=== PATIENT | male | born 1955 | race African-American/Black ===

== ENCOUNTER 2018-07-11 21:44 | Inpatient (IN) ==
[2018-07-11] MEDS ORDERED: NITROGLYCERIN TOP ONE (21:56)
[2018-07-11 22:17] LABS: ALLEN TEST YES; BE 1.1 mmoll (-3.0-3.0); BLOOD TYPE ARTERIAL; HCO3-(ACT) 25.6 mmoll (20.0-26.0); METHB 1.4 % (0.0-1.5); O2(CT) 16.1 mL/dL (15.0-23.0); O2HB 91.2 % (95.0-99.0); PCO2(98.6) 45 mmHg (35-45); PO2(98.6) 68 mmHg (60-100); SAMPLE BLOOD; SAO2 94.5 % (95.0-100.0); THB 12.5 g/dL (11.5-17.4); pH(98.6) 7.38 (7.35-7.45)
[2018-07-11 22:18] LABS: MODALITY VENTIMASK
[2018-07-11] MEDS ORDERED: DUONEB (A & A) INH ONE (22:40)
[2018-07-11] MEDS ORDERED: NITROGLYCERIN 50 MG/D5W 50 MG/250 ML IV.SOLN IV SCH (22:45)
[2018-07-11 22:52] LABS: AGAP 13; ALB/GLOB RATIO 0.8; ALBUMIN 3.1 g/dL (3.5-5.0); ALKALINE PHOSPHATASE 101 U/L (32-122); BUN 15 mg/dL (8-22); CALCIUM 8.7 mg/dL (8.8-10.2); CHLORIDE 97 mmol/L (98-107); COSMO 277; CREATININE 1.1 mg/dL (0.7-1.2); ESTIMATED GFR > 60; GLUCOSE 246 mg/dL (70-104); GOT 18 U/L (10-34); GPT 16 U/L (10-44); SODIUM 134 mmol/L (136-145); TCO2 24 mmol/L (25-35); TOTAL BILIRUBIN 0.48 mg/dL (0.20-1.00); TOTAL PROTEIN 6.9 g/dL (6.3-8.3)
[2018-07-11 22:59] LABS: BASO# 0.02 X1000 (0.0-0.2); BASO% 0.1 % (0.0-0.8); EOS% 0.4 % (0.0-10.0); HEMATOCRIT 36.5 % (42.0-52.0); IMM GRAN# 0.21 X1000 (0.0-0.04); IMM GRAN% 0.9 % (0.0-0.5); LYMPH# 1.24 X1000 (1.2-3.4); LYMPH% 5.1 % (20.5-51.1); MCH 31.8 PG (27-31); MCHC 32.9 g/dL (33-37); MCV 96.8 FL (81-99); MONO# 1.28 X1000 (0.11-0.59); MONO% 5.2 % (1.7-9.3); MPV 11.1 FL (7.4-10.4); NEUT# 21.69 X1000 (1.4-6.5); NEUT% 88.3 % (42.2-75.2); PLT 568 X1000 (130-400); RBC 3.77 XMIL (4.7-6.1); RDW 11.8 % (11.5-14.5); WBC 24.54 X1000 (4.8-10.8)
[2018-07-11 23:08] LABS: LYMPHS 8 % (21-51); MONO 6 % (1-9); SEGS 86 % (42-75)
[2018-07-11] MEDS ORDERED: LASIX IV ONE (23:36)
[2018-07-12] MEDS ORDERED: SODIUM CHLORIDE 0.9% INJ SCH (01:15)
[2018-07-12] MEDS ORDERED: DUONEB (A & A) INH PRN (01:27)
[2018-07-12 02:03] LABS: INR 1.11; PROTIME 15.2 Seconds (11.0-16.0)
[2018-07-12 02:04] LABS: PTT 32.6 Seconds (22.3-41.8)
[2018-07-12] MEDS: PROTONIX IV SCH (02:10)
[2018-07-12] MEDS: APRESOLINE PO SCH ×3 (02:20→17:33)
[2018-07-12] MEDS: DUONEB (A & A) INH SCH ×5 (03:00→23:05)
[2018-07-12] MEDS ORDERED: TYLENOL PO PRN (03:54)
[2018-07-12 05:42] LABS: EOS# 0.05 X1000 (0.0-0.7); EOS% 0.3 % (0.0-10.0); HEMATOCRIT 32.9 % (42.0-52.0); HEMOGLOBIN 10.8 g/dL (14.0-18.0); IMM GRAN# 0.07 X1000 (0.0-0.04); IMM GRAN% 0.4 % (0.0-0.5); LYMPH# 1.71 X1000 (1.2-3.4); LYMPH% 9.5 % (20.5-51.1); MCH 31.8 PG (27-31); MCHC 32.8 g/dL (33-37); MCV 96.8 FL (81-99); MONO# 1.21 X1000 (0.11-0.59); MONO% 6.7 % (1.7-9.3); MPV 10.4 FL (7.4-10.4); NEUT# 14.89 X1000 (1.4-6.5); NEUT% 83.1 % (42.2-75.2); PLT 465 X1000 (130-400); RDW 11.8 % (11.5-14.5); WBC 17.93 X1000 (4.8-10.8)
[2018-07-12 06:04] LABS: AGAP 10; BUN 19 mg/dL (8-22); CALCIUM 8.1 mg/dL (8.8-10.2); CHLORIDE 99 mmol/L (98-107); CK PROFILE 111 U/L (24-204); COSMO 282; CREATININE 1.3 mg/dL (0.7-1.2); ESTIMATED GFR > 60; GLUCOSE 212 mg/dL (70-104); MAGNESIUM 2.1 mg/dL (1.5-2.7); POTASSIUM 4.6 mmol/L (3.5-5.1); SODIUM 137 mmol/L (136-145); TCO2 28 mmol/L (25-35)
--- NOTE | 2018-07-12 06:25 | HISTORY AND PHYSICAL ---
CHIEF COMPLAINT: Shortness of breath. HISTORY OF PRESENT ILLNESS: Mr. Love is a 63-year-old male, who was just recently discharged from our facility on July 07. During this admission, he was treated for right-sided pneumonia, uncontrolled hypertension, and acute kidney injury, and diabetes mellitus. He, during his hospital course, did receive antibiotics of cefepime and Zyvox. He did have consultations with Pulmonology and Infectious Disease with Dr. Beyer, and did get discharged with antibiotic coverage of doxycycline and Levaquin. The patient states that prior to being discharged, he did notice that he began having lower extremity swelling. This has progressively gotten worse since he was discharged home. He did have approximately 1-2+ pitting edema in bilateral lower extremities from approximately just below the knee bilaterally down. He has reported that he was sent home with oxygen and has been wearing this. He reports that his cough has not improved. It has actually worsened. It had been a productive cough with brownish- to-white thick-colored sputum. He also reports that he was experiencing dyspnea upon exertion. Though over the last night or two, that he has had orthopnea and last night he had some paroxysmal nocturnal dyspnea. He also reports that his abdomen has felt more swollen. He denies any headache, dizziness, or chest pain. He denies any fever, body aches, or chills. He denies any nausea, vomiting, diarrhea, or constipation. He reports his last bowel movement was earlier today. He denies any hematochezia or melena. He denies any dysuria, urinary frequency, or any decrease in his urine output. Other than the swelling in his legs, he denies any pain, numbness, or tingling in his extremities. He is not reporting any pain anywhere at this time. Upon evaluation in the ER, the patient did present in the respiratory distress. He was reportedly in the 80s on his home oxygen. Upon EMS arrival, he did have CPAP in the ambulance en route to the ER. Once arriving to the ER, he was able to be placed on a Venti mask at 50% and is maintaining adequate oxygen saturations on this at this time with oxygen saturations in the 95% to 96% range. Though he is still dyspneic breathing around 28 times per minute, the patient states he feels much better since arriving to the ER and receiving oxygen and medications. In the ER, the physician did go ahead and treat the patient with DuoNeb treatment, 1 inch nitro paste to the center chest wall, and Lasix 80 mg IV. Chest x-ray did reveal that the patient does have what appears to be diffuse right-sided pneumonia. There does appear to be some development of pneumonia on the left lung base as well. Though there does appear to be some component of pulmonary vascular congestion. EKG did show a sinus tachycardia at a rate of 109. Laboratory results revealed that he had leukocytosis with a white blood cell count of 24,540. His proBNP was 5555. So, cardiac enzymes were negative. He was slightly hyperglycemic with a glucose of 249. Other than this, his chemistry was pretty unremarkable. Arterial blood gases were good as well. PO2 was 68, pCO2 was 45, pH was 7.38 with an O2 saturation of 94.5 on a Venti mask at 50% FIO2. At this point, the patient will be admitted for further treatment and evaluation of his pneumonia, acute respiratory failure, and possible congestive heart failure. REVIEW OF SYSTEMS: A 14-point review of systems was conducted with the patient and all were negative except for pertinent positives as mentioned above in HPI. PAST MEDICAL HISTORY: 1. Hypertension. 2. Hyperlipidemia. 3. Diabetes mellitus type 2. 4. History of acute kidney injury on his previous admission, though, this does appear to have now resolved. 5. Iron deficiency anemia. PAST SURGICAL HISTORY: The patient denies any previous surgeries. FAMILY HISTORY: Positive for his mother having a history of stroke, diabetes, and hypertension. His father also had a history of stroke, diabetes, and hypertension as well. SOCIAL HISTORY: The patient is a former smoker. He did quit smoking in 1983, although, he did smoke for a period of approximately 15 years at 1 pack per day. There is no other known alcohol or illicit drug use. He does live at home. He reports his daughter does live with him. ALLERGIES: The patient has no known allergies. HOME MEDICATIONS: 1. Coreg 25 mg p.o. q.12 hours. 2. Doxycycline 100 mg p.o. b.i.d. 3. Gabapentin 300 mg p.o. at hour of sleep. 4. Apresoline 25 mg p.o. q.8 hours. 5. Iron 65 mg p.o. daily. 6. Levaquin 500 mg p.o. daily. 7. Lisinopril 5 mg p.o. daily. 8. Lovastatin 20 mg p.o. with supper. 9. Glucophage 1000 mg p.o. b.i.d. 10.Medrol Dosepak 4 mg p.o. as directed. 11.Tresiba subcutaneous q. day as directed. DIAGNOSTIC DATA: Laboratory results: White blood cell count is 24,540, hemoglobin 12, hematocrit 36.5, platelet count is 568. PT 15.2, INR 1.11, PTT is 32.6. Sodium is 134, potassium is 5, chloride is 97, serum bicarb is 24, BUN 15, creatinine 1.1, with a GFR greater than 60, glucose 246, calcium 8.7. Magnesium 2.1. Liver function tests are within normal limits. CK 146. Troponin is 0.01. ProBNP is 5555. Plasma lactate is 1.2. Arterial blood gases were obtained on a Venti mask at 50% FIO2: pH of 7.38, pCO2 was 45, pO2 68, HCO3 is 25.6, base excess of 1.1, and O2 saturation of 94.5. EKG showed sinus tachycardia at a rate of 109. Chest x-ray does show diffuse right-sided pneumonia. There is also what appears to be some pneumonia in the left lower lung field as well. There also does appear to be some pulmonary vascular congestion as well. Though we are awaiting official Radiology over read. PHYSICAL EXAMINATION: VITAL SIGNS: Temperature 98.4, heart rate 108, respirations 28, blood pressure is 177/110, oxygen saturation is 95% on a Venti mask on 50% FIO2. GENERAL: Mr. Love is a pleasant 63-year-old male. He was resting in the ER stretcher. Though he does still appear to be slightly dyspneic and tachypneic upon examination. He does not appear to be in distress. He is able to talk in complete sentences. He states that he does feel better at this time. HEENT: Head is atraumatic, normocephalic. Pupils are equal, round, and reactive to light or 3 mm bilaterally and brisk. Subconjunctiva were slightly pale. Oral mucosa is moist. Oropharynx is clear except for the patient does have some candidiasis noted on his buccal mucosa. NECK: Supple. Trachea midline. No carotid bruits noted upon auscultation bilaterally. There was no JVD noted or hepatojugular reflux. CARDIOVASCULAR: The patient has normal S1, S2. No murmurs, gallops, or rubs appreciated with a slightly tachycardic rate that is regular. PULMONARY: Patient has symmetrical chest expansion bilaterally. Lung calvo and bilateral full calvo were coarse with rhonchi and crackles noted. ABDOMEN: Soft, but does appear to be slightly distended, though he was nontender upon palpation. Bowel sounds were present in all four quadrants were slightly hypoactive. EXTREMITIES: No cyanosis or clubbing noted. The patient does have 1-2+ pitting edema noted on his bilateral lower extremities from approximately below the knee down. He is able to move all extremities. Pulse, motor, and sensory is intact in all extremities. Radial pulses and pedal pulses are 2+ bilaterally. INTEGUMENTARY: Patient's skin color is normal for his race. It is dry and intact. NEUROLOGICAL: The patient is alert and oriented to person, place, and time and situation. There does not appear to be any focal neurological deficits noted. ASSESSMENT AND PLAN: 1. Bilateral pneumonia. This does appear to be worse on the right than the left. There is also what appears to be some possible pulmonary vascular congestion as well. For treatment of this, we have placed the patient on a Venti mask at this time at 50% FIO2. He is tolerating this well and maintaining adequate oxygen saturations. So we will continue to monitor his respiratory status closely and if his respiratory status worsens, we will go ahead and place him with BiPAP. His arterial blood gases look okay at this time; though, we will repeat them in the morning. We will obtain blood culture and sputum culture. We will place him with antibiotic coverage of cefepime and Zyvox. We will continue with aggressive pulmonary toilet with frequent turn cough and deep breathing, incentive spirometry, scheduled DuoNeb treatments, and Mucinex. We have placed a consult with Dr. Beyer with Infectious Disease and Dr. Baeza with Pulmonary. We will wait their evaluation and further recommendations for management. 2. Acute hypoxic respiratory failure. We will continue with treatment as mentioned above in #1. 3. Leukocytosis. This is likely secondary to the patient's pneumonia. We will continue treatment as mentioned above in #1. 4. Possible congestive heart failure. The patient has known reported history of having congestive heart failure, though, he has been having bilateral lower extremity edema, abdominal swelling. He had been reporting exertional dyspnea, orthopnea, and paroxysmal nocturnal dyspnea. Chest x- ray did appear to have some pulmonary vascular congestion as well. His proBNP is elevated. We will obtain a series of cardiac enzymes. Will repeat an EKG in the morning. We will do strict intake and output and daily weights. We are also going to obtain an echocardiogram. He did receive 80 mg of Lasix IV in the ER. We are going to monitor his response to this, and we will continue to follow. 5. Hypertension. Will continue his already prescribed home medications of hydralazine, Coreg, and lisinopril. 6. Hyperlipidemia. Will continue his lovastatin. 7. Diabetes mellitus type 2. We are going to place him on a sliding-scale lispro insulin for better control of his fingerstick blood sugar at this time. He was taking a Medrol Dosepak just after being discharged. This may be contributing to some of his hyperglycemia. At this time, the patient's hemoglobin A1c was 6.8 on July 07 during his most recent admission. 8. Oral candidiasis. We will place the patient with nystatin oral solution. 9. Deep venous thrombosis prophylaxis will be provided with Lovenox 40 mg subcutaneous q.24 hours. The patient will be placed in the intensive care unit for close monitoring. He will have vital signs per intensive care unit protocol. He will be on continuous cardiac, telemetry, and pulse oximetry. He will be on a diabetic and heart healthy diet. We will also repeat CBC, BMP, magnesium, and arterial blood gas in the morning as well as cardiac enzymes. GI prophylaxis will be provided with Protonix 40 mg IV q.24 hours. Further orders and recommendations pending hospital course, diagnostic studies, and physician evaluation. CRITICAL CARE TIME FOR THIS PATIENT: Approximately 60 minutes. Dictated by SHASHANK Forrester for Pacheco Alvares MD cc: Pacheco Alvares MD
[2018-07-12] MEDS: HUMALOG SUBQ SCH ×4 (07:00→21:29)
--- NOTE | 2018-07-12 07:05 | EKG Report ---
Test Performed on : 07/12/2018 06:51:01 AM Test Reason : PNA,Acute Resp. Failure,Poss. CHF Blood Pressure : / mmHG Vent. Rate : 101 BPM Atrial Rate : 101 BPM P-R Int : 130 ms QRS Dur : 092 ms QT Int : 360 ms P-R-T Axes : 059 031 090 degrees QTc Int : 466 ms Sinus tachycardia. with premature atrial complexes. Left atrial enlargement Nonspecific T wave abnormality Abnormal ECG When compared with ECG of 11-JUL-2018 21:47, (Unconfirmed) premature atrial complexes. are now present Confirmed by Mayur ASCENCIO, Richard Sosa ([id number]) on 07/12/2018 5:27:27 PM
--- NOTE | 2018-07-12 07:24 | EKG Report ---
Test Performed on : 07/11/2018 9:47:58 PM Test Reason : sob Blood Pressure : / mmHG Vent. Rate : 109 BPM Atrial Rate : 109 BPM P-R Int : 132 ms QRS Dur : 090 ms QT Int : 342 ms P-R-T Axes : 052 027 074 degrees QTc Int : 460 ms Sinus tachycardia. Possible Left atrial enlargement Nonspecific T wave abnormality Abnormal ECG No previous ECGs available Unconfirmed Result
--- NOTE | 2018-07-12 07:30 | Diag Imaging Result Doc PS360 ---
EXAM: CHEST-PORTABLE 07/11/2018 HISTORY: SOB TECHNIQUE: AP portable at 2205 COMMENT: There is dense alveolar opacity throughout the right lung and in the parahilar region of the left lung. The latter has worsened considerably since 07/06/2018. IMPRESSION: Worsening pulmonary edema versus pneumonia. Electronically signed by Fabio Hair 07/12/2018 7:28 AM
[2018-07-12 07:35] LABS: ALLEN TEST YES; BLOOD TYPE ARTERIAL; HCO3-(ACT) 29.6 mmoll (20.0-26.0); METHB 1.7 % (0.0-1.5); O2(CT) 14.5 mL/dL (15.0-23.0); O2HB 94.2 % (95.0-99.0); PCO2(98.6) 38 mmHg (35-45); PO2(98.6) 72 mmHg (60-100); SAMPLE BLOOD; SAO2 97.4 % (95.0-100.0); THB 10.9 g/dL (11.5-17.4)
[2018-07-12 07:38] LABS: MODALITY CANNULA
[2018-07-12] MEDS ORDERED: ZYVOX 600 MG/D5W 600 MG/300 ML IVPB IV SCH (07:45)
[2018-07-12] MEDS ORDERED: MAXIPIME 1 GM in NS 50 ML IV SCH (07:45)
[2018-07-12] MEDS ORDERED: IRON CARBONYL 65 MG PO SCH (09:00)
[2018-07-12] MEDS: COREG PO SCH ×2 (09:14→21:29)
[2018-07-12] MEDS: ICAR-C PO SCH (09:15)
[2018-07-12] MEDS: LOVENOX SUBQ SCH (09:15)
[2018-07-12] MEDS: MUCINEX PO SCH ×2 (09:16→21:29)
[2018-07-12] MEDS: MYCOSTATIN SUSP PO SCH ×4 (09:17→21:29)
[2018-07-12] MEDS: PRINIVIL PO SCH (09:17)
--- NOTE | 2018-07-12 12:18 | CONSULTATION ---
DATE OF CONSULTATION: 07/12/2018 REQUESTING PROVIDER: SHASHANK Forrester. REASON FOR CONSULTATION: Pneumonia, acute respiratory failure and possible congestive heart failure. HISTORY OF PRESENT ILLNESS: This is a 63-year-old male with a past medical history of hypertension, hyperlipidemia, diabetes mellitus type 2 and possible seasonal pollen allergy. His last admission was between 06/30/2018 to 07/07/2018 for right-sided pneumonia, uncontrolled hypertension, an acute kidney injury and diabetes. He came in last night with worsening shortness of breath and bilateral lower extremity edema. In the ER, a CXR revealed worsening pulmonary edema versus pneumonia throughout the right lung and the perihilar region of the left lung since 07/06/2018. Lab revealed a WBC of 24.5 and proBNP 5555. Blood gas was unremarkable. Patient has been admitted for pneumonia, acute respiratory failure, and possible congestive heart failure. At the time of my exam, patient is still staying in the ER. The patient reports on 07/07/2018 he was discharged home with oxygen at 2 L and he has been wearing it, but it is not helping enough for SOB. He is still coughing with brownish to white thick sputum. The patient also reports that his abdomen distended and tight yesterday. He is feeling better now after excessive urination this morning (patient has received 80mg IV Lasix since arrival). He denies fever, chills, chest pain, nausea, vomiting, constipation, diarrhea. PAST MEDICAL HISTORY: 1. Hypertension, poorly controlled 2. Hyperlipidemia. 3. Diabetes mellitus type 2. 4. Possible seasonal pollen allergy 5. Acute kidney injury on previous admission. PAST SURGICAL HISTORY: None. SOCIAL HISTORY: Patient lives at home with his daughter. He has a remote history of tobacco use and quit in 1983. He denies any history of illicit drug use, but occasionally drinks beer. FAMILY HISTORY: The patient's mother has a history of stroke, diabetes and hypertension. The patient's father also has stroke, diabetes, hypertension. The patient's elder sister has congestive heart failure. Elder brother has heart attack. ALLERGIES: No known drug allergies. REVIEW OF SYSTEMS: A 10 point review of systems was conducted and the pertinent is listed within the HPI, otherwise noncontributory. PHYSICAL EXAMINATION: Vital Signs: Temperature 98.7 degrees, blood pressure 185/97, pulse 86, respiratory rate 27, oxygen saturation 94% on Ventimask at 50% FiO2. General: Obese, no acute distress. HEENT: Atraumatic. Neck: Trachea midline. Respiratory: Diminished breathing sounds with prolonged expiratory phase and bilateral crackles to auscultation. Cardiovascular: Regular rate and rhythm. Gastrointestinal: Soft, nontender. Mildly distended. Normoactive bowel sounds in all 4 quadrants. Extremities: Bilateral lower extremity edema 2+. There is no cyanosis, no clubbing noted. Neurologic: Alert, oriented x3 with intact memory and sensation. LAB DATA: White blood cell 17.93, hemoglobin 10.8, hematocrit 32.9, platelet 465. Sodium 137, potassium 5.0, chloride 97, carbon dioxide 24. BUN 19, creatinine 1.3, glucose 212. ABG reveals a pH of 7.50, pCO2 of 38, PO2 72, HC03 29.6, base excess 6.0, and oxyhemoglobin 94.2. ASSESSMENT: This is a 63-year-old male with medical history of uncontrolled hypertension, hyperlipidemia, diabetes mellitus, possible seasonal pollen allergy and acute kidney injury. He has been admitted to the CICU for bilateral pneumonia, acute hypoxic respiratory failure and possible congestive heart failure: 1. Pneumonia. 2. Acute hypoxemic respiratory failure. 3. Possible congestive heart failure. PLAN: 1. Continue supplemental oxygen as needed 2. BiPAP at bedtime and as needed 3. Continue antibiotic and bronchodilators as prescribed. 4. Routine ABG and chest x-ray. 5. Dr. Beyer, the Infectious Disease specialist, is consulted. 6. Continue GI and DVT prophylaxis. Thank you for the courtesy of this consult. Dictated by SHASHANK Johnson for Francoise Modi MD cc: SHASHANK Johnson MD [facility]
--- NOTE | 2018-07-12 13:54 | ECHO REPORT ---
ORDER DATE: 07/12/2018 PROCEDURE: Echocardiogram. INDICATION: Edema, dyspnea, possible CHF. FINDINGS: 1. Right atrium is mildly enlarged at 4.3 cm. 2. There is mild tricuspid regurgitation. RV systolic pressure of 62 suggesting pulmonary hypertension. 3. Normal RV size and systolic function. 4. Mild pulmonic insufficiency. 5. Severe left atrial enlargement with a volume index of 59. 6. No mitral valve prolapse. Mild to moderate mitral regurgitation. This is a somewhat eccentric jet. 7. Upper limits of normal LV size with an end-diastolic dimension of 5.7. Moderate left ventricular hypertrophy with a posterior and interventricular septal wall thickness 1.6 and 1.5 cm respectively. Normal LV systolic function. Estimated EF of 55% to 60% percent range. 8. Aortic valve opens well. It is trileaflet. No evidence of stenosis or insufficiency. 9. Aorta appears normal in visualized segments. 10. There is a scant predominantly posterior pericardial effusion with no evidence of tamponade type physiology. cc: Nehemiah Valencia MD
[2018-07-12 15:05] LABS: URINE SOURCE CLEAN CATCH
[2018-07-12 15:10] LABS: BILIRUBIN URINE NEGATIVE (NEGATIVE); BLOOD URINE NEGATIVE (NEGATIVE); COLOR YELLOW; GLUCOSE URINE NEGATIVE (NEGATIVE); KETONE URINE NEGATIVE (NEGATIVE); LEUKOCYTES URINE NEGATIVE (NEGATIVE); NITRITE URINE NEGATIVE (NEGATIVE); PH URINE 5.5; PROTEIN URINE 70 mg/dL (NEGATIVE); TURBIDITY URINE CLEAR (CLEAR); UR EPITHELIAL CELLS <10 /HPF (<10); URINE BACTERIA NEGATIVE /HPF; URINE RBC <10 /HPF (<10); URINE WBC <10 /HPF (<10); UROBILINOGEN URINE NORMAL (NORMAL)
--- NOTE | 2018-07-12 15:36 | INFECTIOUS DISEASE PROGRESS NO ---
DATE: 07/12/2018 PRESENT ILLNESS: Mr. Love was recently discharged after being treated for bilateral pulmonary infiltrates with pneumonia versus pulmonary venous congestion. He also had an oral candidiasis. On this admission he returned due to acute respiratory failure with worsening pulmonary edema versus pneumonia noted on the chest x-ray. There is also a leukocytosis. MEDICATIONS: He was discharged on Levaquin 500 mg p.o. daily and doxycycline 100 mg p.o. every 12 hours, which he was taking at home. He was also on Nystatin swish and swallow 4 times a day. Since admission yesterday he has been receiving Zyvox 600 mg IV every 12 hours and cefepime 1 g IV every 12 hours along with Nystatin swish and swallow 4 times a day. PHYSICAL EXAMINATION: Vital Signs: He has been afebrile since admission this time. Last documented temp was 98.5. Pulse rate 84, respiratory rate 15, blood pressure 144/64, and O2 saturation 94% on 50% Ventimask. General: This is a chronically ill-appearing elderly gentleman. He is lying on a stretcher, currently in no acute distress. However, he does get shortness of breath after speaking a few words. HEENT: Atraumatic, normocephalic. Oral mucous membranes are pink and moist. Conjunctivae are pale. Neck: Supple. Trachea is midline. Cardiovascular: Heart rate and rhythm are regular. Normal sinus rhythm on the monitor. Radial and pedal pulses are +2 bilaterally. He has bilateral pretibial edema noted, 2+ on the right and 1+ on the left. Respiratory: Lung sounds are generally clear to auscultation, diminished in the bases. He has a productive cough with "milky brown" sputum. Respiratory rate does elevate at times with some noted tachypnea in the 30s and moderate dyspnea with verbalization. Abdomen: Soft, round, and nontender. Bowel sounds are active. Neurological: He is awake, alert, and oriented with strong extremities; limited activity due to shortness of breath. No tremors noted. LABORATORY AND X-RAY: On admission his white count was 24.54. Today his white count is 17.93, hemoglobin 10.8, and platelet count 465,000. ABGs this morning on a 50% Ventimask show a pH of 7.5, pCO2 of 38, pO2 of 72, and HCO3 29.6. Creatinine is 1.3. Estimated GFR is greater than 60. Creatine kinase is 111. On admission his AST was 18, ALT 16, and alkaline phosphatase 101 with a proBNP of 5,555. Blood and sputum cultures are pending. EKG showed sinus tach with premature atrial complexes. Chest x-ray yesterday showed worsening pulmonary edema versus pneumonia. ASSESSMENT AND PLAN: Mr. Love has pneumonia versus worsening pulmonary edema with acute respiratory failure causing readmission to the hospital after a recent discharge. He has been started on Zyvox and cefepime which we agree with, however, we will change the Zyvox to oral and increase the cefepime to 2 g IV every 8 hours to cover for the possibility of pseudomonas. We will go ahead and order a procalcitonin level and also obtain a urinalysis with urine culture to rule out other origins of his leukocytosis. We will await the results of his blood cultures and sputum culture and continue to watch his renal function carefully since there was an acute kidney injury on his last admission. We also agree with continuing the Nystatin swish and swallow although he states that there is no pain or problems in his mouth at this point. He did have an oral candidiasis previously, so it is appropriate to continue Nystatin until after his antibiotics have been completed and then a few days later. The previous plans have been discussed with and recommended by Dr. Beyer. COMORBIDITIES for Mr. Love include that he is elderly with diabetes mellitus. Dictated by SHASHANK Jordan for Jose Armando Beyer MD This chart was documented by, SHASHANK Jordan and accurately reflects the services performed, treatment plan and medical decisions as attested by the providers signature Jose Armando Beyer MD. cc: MD ANTONIO Bai
[2018-07-12] MEDS: MEVACOR PO SCH (17:33)
[2018-07-12] MEDS ORDERED: BLISTEX MEDICATED BERRY LIP BALM TOP PRN (17:36)
[2018-07-12] MEDS: ZYVOX PO SCH (21:29)
[2018-07-12] MEDS: MAXIPIME 2 GM in NS 100 ML IV SCH (21:29)
[2018-07-12] MEDS: NEURONTIN PO SCH (21:29)
[2018-07-13] MEDS: APRESOLINE PO SCH ×3 (01:48→16:11)
[2018-07-13] MEDS: PROTONIX IV SCH (01:48)
[2018-07-13] MEDS: DUONEB (A & A) INH SCH ×6 (03:05→22:58)
[2018-07-13] MEDS: MAXIPIME 2 GM in NS 100 ML IV SCH ×3 (04:23→19:50)
[2018-07-13 05:43] LABS: HEMATOCRIT 29.5 % (42.0-52.0); HEMOGLOBIN 9.5 g/dL (14.0-18.0); MCH 31.9 PG (27-31); MCHC 32.2 g/dL (33-37); MPV 10.9 FL (7.4-10.4); RBC 2.98 XMIL (4.7-6.1); RDW 12.2 % (11.5-14.5); WBC 14.98 X1000 (4.8-10.8)
[2018-07-13 05:50] LABS: AGAP 8; ALB/GLOB RATIO 0.5; ALBUMIN 2.2 g/dL (3.5-5.0); ALKALINE PHOSPHATASE 72 U/L (32-122); BUN 18 mg/dL (8-22); CALCIUM 8.4 mg/dL (8.8-10.2); CHLORIDE 100 mmol/L (98-107); COSMO 273; CREATININE 1.4 mg/dL (0.7-1.2); ESTIMATED GFR > 60; GLUCOSE 116 mg/dL (70-104); GOT 21 U/L (10-34); GPT 14 U/L (10-44); SODIUM 135 mmol/L (136-145); TCO2 27 mmol/L (25-35); TOTAL PROTEIN 6.8 g/dL (6.3-8.3)
[2018-07-13] MEDS: LOVENOX SUBQ SCH (05:51)
[2018-07-13 05:59] LABS: ALLEN TEST YES; BE 3.6 mmoll (-3.0-3.0); BLOOD TYPE ARTERIAL; HCO3-(ACT) 27.7 mmoll (20.0-26.0); METHB 1.2 % (0.0-1.5); O2(CT) 13.4 mL/dL (15.0-23.0); O2HB 94.5 % (95.0-99.0); PCO2(98.6) 39 mmHg (35-45); PO2(98.6) 72 mmHg (60-100); SAMPLE BLOOD; SAO2 97.1 % (95.0-100.0); pH(98.6) 7.46 (7.35-7.45)
[2018-07-13 06:05] LABS: MODALITY VENTIMASK
[2018-07-13] MEDS: HUMALOG SUBQ SCH ×4 (06:09→20:01)
[2018-07-13] MEDS: MYCOSTATIN SUSP PO SCH ×5 (08:09→20:00)
[2018-07-13] MEDS: ZYVOX PO SCH ×3 (08:09→20:01)
[2018-07-13] MEDS: COREG PO SCH ×3 (08:09→20:01)
[2018-07-13] MEDS: PRINIVIL PO SCH (08:09)
[2018-07-13] MEDS: MUCINEX PO SCH ×3 (08:09→20:01)
[2018-07-13] MEDS: ICAR-C PO SCH (08:09)
--- NOTE | 2018-07-13 08:38 | INFECTIOUS DISEASE PROGRESS NO ---
DATE: 07/13/2018 PRESENT ILLNESS: The patient is readmitted to the hospital with worsening dyspnea on x-ray. The patient has pulmonary venous congestion and/or pneumonia. MEDICATIONS: Yesterday the patient was started on cefepime and Zyvox. PHYSICAL EXAMINATION: Vital Signs: Temperature is 98 degrees, pulse 94, respirations 16, blood pressure 160/78. General: This is an ill-appearing, elderly male. He tells me that his breathing is much better than what it was yesterday. Head/eyes/ears/nose/throat: He can hear my spoken words and see near objects. I do not see any white patches in his mouth. Neck: No meningismus. Thorax: No increased AP diameter of the chest. Lungs: Bilateral rhonchi. Cardiovascular: Heart rate is regular. Abdomen: Soft and nontender. Extremities: Patient has bilateral leg edema, but no erythema. Neurologic: The patient is alert. He can move his extremities. There is no tremor. LAB AND X-RAY: Chest x-ray shows pulmonary edema versus pneumonia. Sputum and urine cultures are pending. Blood cultures are negative. Urinalysis showed no white cells or bacteria. CBC shows a white count of 14,980, hemoglobin 9.5, and platelet count 40,000. Blood gases show a pH of 7.46, a PO2 of 72, a pCO2 of 39. Creatinine is 1.4. GFR is greater than 60. Liver function studies are normal. ASSESSMENT AND PLAN: Patient has pneumonia and/or pulmonary edema. From my perspective, I plan to continue the patient's current antibiotics. The patient has a procalcitonin level ordered. COMORBIDITIES: The patient's comorbidities include patient is elderly and he has diabetes mellitus. cc: Jose Armando Beyer MD
--- NOTE | 2018-07-13 11:47 | Diag Imaging Result Doc PS360 ---
EXAM: CHEST-1 VIEW HISTORY: SOB TECHNIQUE: Chest single view COMPARISON: 07/11/2018 FINDINGS: There are dense bilateral infiltrates. These are slightly less dense in the mid left lung compared the prior study. Heart remains enlarged. There may be small pleural effusions. IMPRESSION: Persistent dense infiltrates with slight interval improvement. Electronically signed by Frankie Gordillo 07/13/2018 11:44 AM
--- NOTE | 2018-07-13 12:40 | PROGRESS NOTE ---
DATE: 07/13/2018 SUBJECTIVE: Patient reports breathing better. Denies any chest pain. Denies any fever or chills. OBJECTIVE: Vital Signs: Temperature 98.0, heart rate 94, respiratory rate 16, blood pressure 160/78. O2 saturation 93% on Venturi mask at 15 L/minute. General Examination: This is a chronically ill-looking 63-year-old male, lying in bed, in no acute distress. HEENT: Head is normocephalic, atraumatic. Mucous membranes dry. Neck: No JVD noted. No carotid bruits. No lymphadenopathy. Cardiovascular: S1, S2 heard. No murmurs, gallops, or rubs. Regular rate and rhythm. Respiratory: Coarse breath sounds in both pulmonary calvo, mostly noted in both bases. The patient is not using any accessory muscles or having work of breathing. Abdomen: Soft. A little bit distended, but nontender to palpation. Bowel sounds present. No organomegaly. Extremities: No clubbing or cyanosis. There is 2+ pitting edema noted in both lower extremities below the knee down. Peripheral pulses present in both legs. Neurological: Patient alert oriented x3. Moves 4 extremities. LABORATORY DATA: White cell count 14.98, hemoglobin 9.5, hematocrit 29.5, platelets 115,000. ABG shows pH 7.46 with pCO2 39, pO2 72. Sodium 135, creatinine 1.4. ASSESSMENT AND PLAN: 1. Acute respiratory failure secondary to bilateral pneumonia. Patient is on Zyvox by mouth, but cefepime 2 g IV q.[address] Beyer from Infectious Disease is following this patient. White cell count is getting better. We will continue with the same management. We will continue with the same oxygen supplementation. Hopefully, we can wean off of oxygen on this patient. 2. Possible congestive heart failure. We have ordered an echo, which basically did show an ejection fraction of 55% to 60% with scan predominantly posterior pericardial effusion with no evidence of tamponade. There is also some findings suggesting pulmonary hypertension. In any case, we will continue to monitor this patient closely. 3. Hypertension. We will continue with Coreg, hydralazine, and lisinopril. 4. Hyperlipidemia. Will continue with lovastatin. 5. Diabetes mellitus type 2. We will continue with sliding scale insulin and also Accu-Cheks before meals and also at bedtime. 6. Deep vein thrombosis prophylaxis on Lovenox. 7. Disposition. We will continue with same management, and patient is concerned of being discharged too soon. So at this point, we will continue with the same management. We will keep this patient until next Tuesday at least and see how he is doing. cc: Barrett Carpenter MD
[2018-07-13] MEDS: MEVACOR PO SCH (16:11)
[2018-07-13] MEDS: NEURONTIN PO SCH ×2 (19:51→20:01)
[2018-07-13] MEDS ORDERED: DULCOLAX PR ONE (21:19)
[2018-07-14] MEDS: PROTONIX IV SCH (01:19)
[2018-07-14] MEDS: APRESOLINE PO SCH ×3 (01:19→16:56)
[2018-07-14] MEDS: DUONEB (A & A) INH SCH ×6 (03:15→23:26)
[2018-07-14] MEDS: MAXIPIME 2 GM in NS 100 ML IV SCH ×3 (04:39→20:15)
[2018-07-14 05:46] LABS: BASO# 0.03 X1000 (0.0-0.2); BASO% 0.2 % (0.0-0.8); EOS# 0.29 X1000 (0.0-0.7); EOS% 1.8 % (0.0-10.0); HEMATOCRIT 30.4 % (42.0-52.0); HEMOGLOBIN 9.8 g/dL (14.0-18.0); IMM GRAN# 0.06 X1000 (0.0-0.04); IMM GRAN% 0.4 % (0.0-0.5); LYMPH# 1.54 X1000 (1.2-3.4); LYMPH% 9.8 % (20.5-51.1); MCH 31.7 PG (27-31); MCHC 32.2 g/dL (33-37); MCV 98.4 FL (81-99); MONO# 1.33 X1000 (0.11-0.59); MONO% 8.4 % (1.7-9.3); MPV 10.6 FL (7.4-10.4); NEUT# 12.49 X1000 (1.4-6.5); NEUT% 79.4 % (42.2-75.2); PLT 358 X1000 (130-400); RBC 3.09 XMIL (4.7-6.1); RDW 12.1 % (11.5-14.5); WBC 15.74 X1000 (4.8-10.8)
[2018-07-14 05:48] LABS: EOS 4 % (1-10); LYMPHS 14 % (21-51); MONO 2 % (1-9); SEGS 80 % (42-75)
[2018-07-14 05:49] LABS: CALCIUM 8.6 mg/dL (8.8-10.2); CREATININE 1.6 mg/dL (0.7-1.2); POTASSIUM 4.5 mmol/L (3.5-5.1)
--- NOTE | 2018-07-14 05:49 | PROVIDER DOCUMENTATION ---
This chart was entered by Hina Stephenson Scribe, acting as scribe for Gretchen Dorantes DO. HPI-Respiratory General - General Chief Complaint: Shortness of Breath Stated Complaint: SOB Time Seen by Provider: 07/11/18 21:48 Source: patient Allergies/Adverse Reactions: Patient Allergies Allergy/AdvReac Type Severity Reaction Status Date / Time No Known Allergies Allergy Verified 07/12/18 07:43 Home Medications: Home Medication List Medication Instructions Recorded Confirmed Last Taken Type Gabapentin 300 mg PO HS 06/30/18 07/12/18 Unknown History Iron,Carbonyl [Iron] 65 mg PO DAILY 06/30/18 07/12/18 Unknown History Lovastatin 20 mg PO WSUPPER 06/30/18 07/12/18 Unknown History Metformin [Glucophage] 1,000 mg PO BID CC 06/30/18 07/12/18 Unknown History Acetaminophen [Tylenol] 650 mg PO Q6H PRN PRN #20 tab 07/07/18 07/12/18 Unknown Rx Carvedilol [Coreg] 25 mg PO Q12HR #120 tab 07/07/18 07/12/18 Unknown Rx Doxycycline 100 mg PO BID 7 Days #14 tab 07/07/18 07/12/18 Unknown Rx Hydralazine [Apresoline] 25 mg PO Q8H #120 tab 07/07/18 07/12/18 Unknown Rx LISINOpril [Prinivil] 5 mg PO DAILY #90 tab 07/07/18 07/12/18 Unknown Rx Levofloxacin [Levaquin] 500 mg PO DAILY 7 Days #7 tab 07/07/18 07/12/18 Unknown Rx Methylprednisolone [Medrol Dosepak] 4 mg PO DIRECTED #1 pkg 07/07/18 Unknown Rx Nystatin 100,000 unit PO PC + HS 10 Days 07/07/18 07/12/18 Unknown Rx #200 ml - History of Present Illness-Resp Nature of Presenting Problem: 63yom c/o sob, minor R-sided chest pain, and cough since last night. He reports it has worsened this evening. He reports he has orthopnea, and that he feels better sitting upright. He denies fever, chills, n,v,d. He was recently discharged from here after an admission for R sided PNA. Quality of Pain: reports: aching Severity in ED: reports: mild Onset/Duration: reports: this evening (worsening), last night Timing: reports: still present, intermittent, constant Cough Quality/Degree: reports: moderate Current Respiratory Medication Therapy: Initiated see nurses note Modifying Factors: improves with: nothing Associated Symptoms: reports: chest pain/soreness, cough, shortness of breath. denies: fever/chills Similar Symptoms Previously?: No Recently seen or treated by another doctor?: No Review of Systems - Adult - REVIEW OF SYSTEMS - ADULT Constitutional: denies: chills, fever Eyes: denies: discharge, dry eyes Ears, Nose, Mouth & Throat: denies: ear discharge, ear pain Cardiovascular: reports: chest pain. denies: palpitations Respiratory: reports: cough, shortness of breath Gastrointestinal: denies: abdominal pain, diarrhea, nausea, vomiting Genitourinary: denies: dysuria, hematuria Musculoskeletal: denies: back pain, muscle aches, muscle weakness Integumentary: reports: no symptoms reported Neurological: denies: dizziness/vertigo, headache/migraines Psychiatric: reports: no symptoms reported Endocrine: reports: no symptoms reported Hematologic/Lymphatic: reports: no symptoms reported Allergic/Immunologic: reports: no symptoms reported All Other Systems: Reviewed and Negative Past History - Adult - PAST MEDICAL HISTORY-ADULT Review of Records: reports: Old Records Reviewed, Nursing Assessment Review, Medications Reviewed Cardiovascular: reports: HTN, hyperlipidemia Respiratory: reports: denies history Gastrointestinal: reports: other (recent normal c scope). denies: colitis, diverticulosis Genitourinary: reports: erectile dysfunction Musculoskeletal: reports: denies history Neurological: reports: denies history Endocrine/Immune: reports: Diabetes - PRIOR SURGERIES/PROCEDURES Surgical/Procedure History: reports: none - IMMUNIZATION STATUS Childhood Immunizations: See Nurse Assessment Flu Vaccine: See Nurse Assessment - FAMILY HISTORY Family History: reviewed, not pertinent - SOCIAL HISTORY Smoking: other (former) Substance Use: denies Living Situation: family Physical Exam-General - PHYSICAL EXAM-ADULT Initial Vital Signs Reviewed: Yes - CONSTITUTIONAL General Appearance: alert, moderate distress, severe distress, other ( diaphoretic, pt is speaking in 2-3 word sentences) - EYES Eyes: PERRL/EOMI, pink conjunctivae - NECK Neck: non-tender, supple - RESPIRATORY Respiratory: rales (bilaterally), other (tachypnea) - CARDIOVASCULAR Cardiovascular: no murmur, tachycardia - MUSCULOSKELETAL Extremity: non-tender, no pedal edema - SKIN Integumentary: normal color, warm/dry - NEUROLOGIC Neurologic: grossly normal, no motor/sensory deficits - PSYCHIATRIC Psych/Mental Status: normal mood/affect, normal thought content, normal thought process, oriented x 3 Progress - PLAN OF CARE/RESULTS Progress/Plan/Lab Results: Orders Category Date Time Status Admit - [facility] Routine AdmDCTranf 07/12/18 03:54 Active Activity - Up with Assistance ORDERED Care 07/12/18 03:54 Active FSBS/Accucheck Result AC + HS Care 07/12/18 03:54 Active Intake and Output-Strict ORDERED Care 07/12/18 01:29 Active Nursing- Assist w/ IS as order [id number] Care 07/12/18 01:29 Active Nursing- MD Consult Request ROUTINE Care 07/12/18 03:54 Completed Vital Signs Order Q 4-HR ASSESS Care 07/12/18 01:29 Active Z-Document. for Tele Applied ORDERED Care 07/12/18 03:54 Completed Physician/Provider Consults Routine Cons 07/12/18 07:00 Ordered Physician/Provider Consults Routine Cons 07/12/18 07:00 Ordered Diabetic Diet Diet 07/12/18 01:16 Active cxr [CHEST-PORTABLE] [RAD] Stat Exams 07/11/18 22:01 Completed ABG [RESP] Routine Lab 07/11/18 22:08 Completed ABG [RESP] Routine Lab 07/12/18 07:25 Completed BASIC METABOLIC PANEL [CHEM] Routine Lab 07/12/18 05:35 Completed BLOOD CULTURE [BLDCUL] Stat Lab 07/11/18 22:10 Results CBC WITH DIFF [HEME] Routine Lab 07/12/18 05:35 Completed CBC WITH ELECTRONIC DIFF [HEME] Stat Lab 07/11/18 22:10 Completed COMPREHENSIVE METABOLIC PANEL [CHEM] Stat Lab 07/11/18 22:10 Completed LACTATE, PLASMA [CHEM] Stat Lab 07/11/18 22:10 Completed MAGNESIUM [CHEM] Routine Lab 07/12/18 05:35 Completed MAGNESIUM [CHEM] Stat Lab 07/11/18 22:10 Completed PRO B-NATRIURETIC PEPTIDE Stat Lab 07/11/18 22:10 Completed SPUTUM CULTURE WITH GRAM STAIN [RM] Routine Lab 07/11/18 02:15 Results TROPONIN T Stat Lab 07/11/18 22:10 Completed Albuterol 2.5MG/Ipratrop 0.5MG [Duoneb (A & A)] Med 07/11/18 22:40 Discontinued 3 ml INH NOW ONE Furosemide [Lasix] Med 07/11/18 23:36 Discontinued 80 mg IV NOW ONE Nitroglycerin Med 07/11/18 21:56 Discontinued 1 inch TOP NOW ONE Nitroglycerin 50 mg/D5w Med 07/11/18 22:45 Active 50 mg in 250 ml IV As Directed Aerosol Treatments Routine Oth 07/11/18 22:40 Completed Aerosol Treatments Stat Oth 07/11/18 22:40 Completed Incentive Spirometer Routine Oth 07/12/18 01:29 Completed Oxygen Device Routine Oth 07/12/18 03:54 Completed Pulse Oximetry Routine Oth 07/12/18 03:54 Completed Telemetry [OM.EQ] Routine Oth 07/12/18 03:54 Active EKG [EKG] Routine Ther 07/12/18 08:00 Completed EKG [EKG] Stat Ther 07/11/18 21:49 Draft Echo Spec/Color Dop W/O Contra Routine Ther 07/12/18 07:00 Completed Transfer/Admit Order [TRANSFER] Routine Transfer 07/11/18 23:42 Completed Clinically stable while in the ED. He was given lasix as well as a Duoneb tx and readmitted to the hospitalist service. Result Diagrams: 07/14/18 05:15 07/13/18 05:05 - EKG 1 Time of EKG reading by physician:: 21:50 EKG Read and Signed by:: Gretchen Dorantes EKG Interpretation (*Must complete 3 of following elements*): Abnormal Rate: 109 Rhythm: Sinus tachycardia NH Interval: normal ST Wave: non-specific ST changes Comments: possible left atrial enlargement - XRAY 1 XRAY Study: Chest Impression: Abnormal (diffuse edema bilaterally) - CONSULTS/PCP/HOSPITALIST Notification #1 *Consult/PCP/Hospitalist*: Dr. Bustamante Time Discussed: 22:33 Consult Disposition: Will see in ED Departure - Departure Date of Disposition Decision: 07/11/18 Time of Disposition Decision: 23:45 DIAGNOSIS: Pneumonia Qualifiers: Pneumonia type: due to unspecified organism Laterality: unspecified laterality Lung location: unspecified part of lung Qualified Code(s): J18.9 - Pneumonia, unspecified organism CHF (congestive heart failure) Qualifiers: Heart failure type: unspecified Heart failure chronicity: unspecified Qualified Code(s): I50.9 - Heart failure, unspecified Disposition: ADMITTED INPATIENT 09 Certified Medical Emergency: Emergent Condition: Stable - Critical Care Note This patient required my direct & personal management of CC.: No Attestation - Physician/ STEVEN Attestation Patient care was provided by Advanced Practice Provider:: No The physician spent face to face time with patient:: Yes Advanced Practice Provider documentation review:: Supervising physician onsite and consulted in the evaluation and care of this patient. The physician did have a face to face encounter with the patient. This chart was documented by the indicated scribe, (Hina Stephenson, Greciaibsommer) and accurately reflects the services I performed and decisions made by , Gretchen Dorantes DO, as attested by the provider's signature.
[2018-07-14] MEDS: LOVENOX SUBQ SCH (05:58)
[2018-07-14] MEDS: HUMALOG SUBQ SCH ×4 (06:00→20:15)
--- NOTE | 2018-07-14 06:49 | Diag Imaging Result Doc PS360 ---
EXAM: CHEST-1 VIEW HISTORY: SOB TECHNIQUE: Chest single view COMPARISON: 07/13/2018 FINDINGS: There are dense and diffuse infiltrates throughout the lungs. Heart is enlarged. Questionable small right pleural effusion. IMPRESSION: No interval improvement. Electronically signed by Frankie Gordillo 07/14/2018 6:47 AM
[2018-07-14] MEDS ORDERED: LASIX IV ONE (08:23)
--- NOTE | 2018-07-14 08:36 | INFECTIOUS DISEASE PROGRESS NO ---
DATE: 07/14/2018 PRESENT ILLNESS: The patient has a combination of pulmonary venous congestion and pneumonia. MEDICATIONS: This is the. second day of treatment with the combination of cefepime and Zyvox. PHYSICAL EXAMINATION: Vital Signs: Temperature is 99.4 degrees, pulse 92, respirations 24, blood pressure 166/63. General: This is an obese, elderly male, who remains dyspneic at rest. Head/eyes/ears/nose/throat: He can hear my spoken words and see near objects. He does not have any white patches on his tongue. Neck: No meningismus. Thorax: No increased AP diameter of the chest. Lungs: There were bilateral rhonchi. Cardiovascular: Heart rate is regular. Abdomen: Soft and nontender. Extremities: The patient has leg edema, but no erythema. Neurologic: The patient is lethargic. He can move his extremities. There is no tremor. LAB AND X-RAY: Chest x-ray shows bilateral infiltrates compatible with pulmonary venous congestion and/or pneumonia. The patient's procalcitonin level is 1.6. Blood and urine cultures are negative. Sputum culture is growing normal pearl. CBC shows a white count of 15,740, hemoglobin 9.8, platelet count 358,000. Creatinine is 1.6. GFR is 53. ASSESSMENT AND PLAN: Patient has pneumonia, and I also believe he has pulmonary venous congestion. I am going to continue with the patient's current antibiotics consisting of consisting of cefepime and Zyvox. This is the second day of treatment with cefepime and Zyvox. I plan to continue with the 2 agents for now. COMORBIDITIES: The patient is elderly and he also is a diabetic. cc: Jose Armando Beyer MD
[2018-07-14] MEDS: ZYVOX PO SCH ×2 (08:40→20:08)
[2018-07-14] MEDS: ICAR-C PO SCH (08:40)
[2018-07-14] MEDS: COREG PO SCH ×2 (08:40→20:08)
[2018-07-14] MEDS: MYCOSTATIN SUSP PO SCH ×4 (08:40→20:08)
[2018-07-14] MEDS: MIRALAX PO SCH (08:40)
[2018-07-14] MEDS: MUCINEX PO SCH ×2 (08:40→20:08)
[2018-07-14] MEDS ORDERED: PRINIVIL PO SCH ×2 (09:00→21:00)
--- NOTE | 2018-07-14 09:09 | PROGRESS NOTE ---
DATE: 07/14/2018 SUBJECTIVE: Patient reports that he noticing shortness of breath during last night, and he was not able to sleep last night because of that sensation. He needs to use more pillows, not able to sleep in a flat position. Denies any chest pain. OBJECTIVE: Vital Signs: Temperature 97.4 degrees, heart rate 94, respiratory rate 20, blood pressure 155/83, O2 saturation 98% on BiPAP. General: This is a chronically ill-looking, 63-year- old male, lying in bed, in no acute distress. HEENT: Head is normocephalic and atraumatic. Neck: No JVD noted. No carotid bruits. No lymphadenopathy. No thyromegaly. Cardiovascular: S1, S2 heard. No murmurs, gallops, or rubs. Regular rate and rhythm. Respiratory: There is coarse breath sounds and crackles noted in both pulmonary bases. Definitely worse in comparing with yesterday. Patient is not using any accessory muscles or having work of breathing. Patient using a BiPAP mask. Abdomen: Soft, a little bit distended, but nontender to palpation. Bowel sounds present. No organomegaly. Extremities: No clubbing, cyanosis. There is still 2+ pitting edema noted in both lower extremities [id number] down. Peripheral pulses present in both legs but faint. Neurological: Patient alert and oriented x3. Moves 4 extremities. LABORATORY DATA: White cell count 15.74, hemoglobin 9.8, hematocrit 30.4, platelets 358,000. Sodium 133, and creatinine 1.6. ASSESSMENT AND PLAN: 1. Acute respiratory failure secondary to bilateral pneumonia. Patient continues to be on Zyvox by mouth and also cefepime 2 grams IV q.[address] Beyer managing antibiotics in this patient. White cell count is basically the same in comparing with yesterday. Clinically, this patient is not doing good. At this point, we will continue following recommendations from Dr. Beyer. 2. Possible congestive heart failure. Even though the echo did show ejection fraction 55% to 60%, with scant posterior pericardial effusion, patient clinically is feeling worse and also, there is more crackles in both pulmonary bases. So I prefer to start Lasix on this patient, considering that also the lower extremity edema is also a little bit worse today. We will provide 1 dose of Lasix 60 IV and will continue with 40 mg IV q.12 hours of Lasix and see how this patient does. 3. Hypertension. Blood pressure is a little bit elevated. But considering his renal dysfunction, we will start lisinopril on provide amlodipine 10 mg at bedtime. 4. Hyperlipidemia. Patient is on lovastatin. We will continue with the same management. 5. Diabetes mellitus type 2. We will continue with sliding scale insulin and Accu-Cheks before meals and also at bedtime. 6. Deep vein thrombosis prophylaxis. Patient is on Lovenox. 7. Acute kidney injury. Renal function continues to get worse, but urine output is stable. We will continue to monitor this patient closely. 8. Disposition. At this point, we will continue with the same management. We will keep monitoring him closely here in the [facility], and will get a CT of the chest to have a better visualization of the lung anatomy. cc: Barrett Carpenter MD
[2018-07-14 09:35] LABS: ALLEN TEST YES; BLOOD TYPE ARTERIAL; HCO3-(ACT) 25.7 mmoll (20.0-26.0); METHB 1.8 % (0.0-1.5); O2(CT) 14.5 mL/dL (15.0-23.0); O2HB 96.7 % (95.0-99.0); PCO2(98.6) 37 mmHg (35-45); PO2(98.6) 167 mmHg (60-100); SAMPLE BLOOD; SAO2 99.8 % (95.0-100.0); SRATE 18 BPM; THB 10.4 g/dL (11.5-17.4); pH(98.6) 7.44 (7.35-7.45)
[2018-07-14 09:37] LABS: MODALITY BI PAP
--- NOTE | 2018-07-14 14:51 | Diag Imaging Result Doc PS360 ---
EXAM: CT THORAX W/O CONTRAST 07/14/2018 HISTORY: worsening pna TECHNIQUE: This exam was performed using automated exposure control, adjustment of mA or kV according to patient size, and/or use of iterative reconstruction technique. COMMENT: There are no previous studies. There are bilateral pleural fluid collections. There is extensive interstitial and alveolar opacity throughout both lungs. There is relative sparing of the inferior portion of the lingula and left lower lobe. There is extensive coronary atherosclerosis. There is right paratracheal and aorticopulmonary window adenopathy. One right paratracheal node measures over 2.2 cm in diameter. There are spondylotic changes in the thoracic spine. No acute bony abnormalities are demonstrated. IMPRESSION: Pneumonia with bilateral pleural effusions. Mediastinal adenopathy. Electronically signed by Fabio Hair 07/14/2018 2:49 PM
[2018-07-14] MEDS: MEVACOR PO SCH (16:56)
[2018-07-14] MEDS: NEURONTIN PO SCH (20:08)
[2018-07-14] MEDS: NORVASC PO SCH (20:08)
[2018-07-14] MEDS: ZOFRAN IV PRN (20:15)
[2018-07-14] MEDS ORDERED: LASIX IV SCH (21:00)
[2018-07-15] MEDS: PROTONIX IV SCH (00:37)
[2018-07-15] MEDS: APRESOLINE PO SCH ×3 (00:37→16:59)
[2018-07-15] MEDS: DUONEB (A & A) INH SCH ×6 (03:12→22:43)
[2018-07-15] MEDS: MAXIPIME 2 GM in NS 100 ML IV SCH ×3 (04:12→21:25)
[2018-07-15 06:08] LABS: BASO# 0.01 X1000 (0.0-0.2); BASO% 0.1 % (0.0-0.8); EOS# 0.25 X1000 (0.0-0.7); EOS% 1.6 % (0.0-10.0); HEMATOCRIT 30.8 % (42.0-52.0); HEMOGLOBIN 9.7 g/dL (14.0-18.0); IMM GRAN# 0.07 X1000 (0.0-0.04); IMM GRAN% 0.4 % (0.0-0.5); LYMPH# 1.07 X1000 (1.2-3.4); LYMPH% 6.6 % (20.5-51.1); MCHC 31.5 g/dL (33-37); MCV 98.4 FL (81-99); MONO# 1.18 X1000 (0.11-0.59); MONO% 7.3 % (1.7-9.3); MPV 11.4 FL (7.4-10.4); NEUT# 13.54 X1000 (1.4-6.5); PLT 355 X1000 (130-400); RBC 3.13 XMIL (4.7-6.1); RDW 12.1 % (11.5-14.5); WBC 16.12 X1000 (4.8-10.8)
[2018-07-15] MEDS: HUMALOG SUBQ SCH ×4 (06:14→22:48)
[2018-07-15] MEDS: LOVENOX SUBQ SCH (06:23)
[2018-07-15 06:38] LABS: CALCIUM 8.7 mg/dL (8.8-10.2); CREATININE 1.7 mg/dL (0.7-1.2); POTASSIUM 4.6 mmol/L (3.5-5.1)
[2018-07-15] MEDS: MUCINEX PO SCH ×2 (08:23→21:25)
[2018-07-15] MEDS: MYCOSTATIN SUSP PO SCH ×4 (08:23→21:25)
[2018-07-15] MEDS: COREG PO SCH ×2 (08:23→21:25)
[2018-07-15] MEDS: MIRALAX PO SCH (08:23)
[2018-07-15] MEDS: ZYVOX PO SCH ×2 (08:23→21:25)
[2018-07-15] MEDS: ICAR-C PO SCH (08:23)
[2018-07-15 09:48] LABS: ALLEN TEST YES; BE 1.2 mmoll (-3.0-3.0); BLOOD TYPE ARTERIAL; HCO3-(ACT) 25.8 mmoll (20.0-26.0); METHB 1.9 % (0.0-1.5); PCO2(98.6) 34 mmHg (35-45); PO2(98.6) 67 mmHg (60-100); SAMPLE BLOOD; SAO2 96.2 % (95.0-100.0); THB 9.9 g/dL (11.5-17.4); pH(98.6) 7.47 (7.35-7.45)
[2018-07-15 09:49] LABS: MODALITY NRB
--- NOTE | 2018-07-15 11:23 | PROGRESS NOTE ---
DATE: 07/15/2018 SUBJECTIVE: Patient reports still noticing shortness of breath. Also nursing staff reports that he was going back and forth between a Ventimask and also on BiPAP because of oxygenation. OBJECTIVE: Vital Signs: Temperature 98.8 degrees, heart rate 95, respiratory rate 17, blood pressure 165/63, O2 saturation 93% on non-rebreather mask. General Examination : This is a chronically ill-looking, 63-year-old male, lying in bed, in no acute distress. HEENT: Head is normocephalic, atraumatic. Mucous membranes dry. Neck: No JVD noted. No carotid bruits. No lymphadenopathy. Cardiovascular: S1, S2 heard. Tachycardic. No murmurs, gallops, or rubs. Respiratory: Breath sounds still present in both pulmonary bases as well as crackles. The patient is not using any accessory muscles or having work of breathing. Abdomen: Soft, a little bit distended but nontender to palpation. Bowel sounds present. No organomegaly. Extremities: No clubbing. There is still 2+ pitting edema noted in both lower extremities below the knee down that is unchanged in comparing with previous days. Peripheral pulses present in both legs but faint. Neurological: Patient is alert and oriented x3. Moves 4 extremities. LABORATORY DATA: White cell count 16.12, hemoglobin 9.7, hematocrit 30.8, platelets 355,000. No ABG from today. BMP shows creatinine 1.7 with sodium 133. ASSESSMENT/PLAN: 1. Acute respiratory failure secondary to bilateral pneumonia. Patient is on Zyvox oral and cefepime 2 g IV q.8 h. Unfortunately, this patient clinically is not getting better. White cell count is still elevated and has been for the last [address] Beyer is following this patient and directing antibiotics. I think at this point, we will continue with antibiotics which are directed by Dr. Beyer. 2. Possible congestive heart failure. The echo as we mentioned before, did show an ejection fraction of 55% to 60% . The patient clinically continues to feel short of breath and crackles were found on physical examination. We have started Lasix on this patient. Unfortunately, because of elevation creatinine, we will hold this treatment for now. 3. Hypertension. Blood pressure is better controlled. We have started amlodipine 10 mg p.o. at bedtime instead of lisinopril because of NELI. I will continue to monitor this patient closely. 4. Acute kidney injury. Renal function continues to get worse. That is why we finally decided to stop the Lasix and lisinopril. We will see how the renal function does over the next few days. 5. Hyperlipidemia. We will continue with lovastatin. 6. Diabetes mellitus, type 2. Patient is on Accu-Cheks before meals and also at bedtime and sliding scale. 7. Deep vein thrombosis prophylaxis. Patient on Lovenox. DISPOSITION: At this point, we will continue with breathing treatments. The CT of the chest did show pneumonia with bilateral pleural effusion and mediastinal adenopathy. We will continue to monitor this patient closely in the [facility]. cc: Barrett Carpenter MD MTDM[place]
[2018-07-15] MEDS ORDERED: LASIX IV ONE (13:42)
[2018-07-15] MEDS: MEVACOR PO SCH (16:59)
[2018-07-15] MEDS: NORVASC PO SCH (21:25)
[2018-07-15] MEDS: NEURONTIN PO SCH (21:25)
[2018-07-16] MEDS: APRESOLINE PO SCH ×2 (00:05→08:37)
[2018-07-16] MEDS: PROTONIX IV SCH (00:05)
[2018-07-16] MEDS: DUONEB (A & A) INH SCH ×3 (02:59→11:48)
[2018-07-16 05:38] LABS: ALLEN TEST YES; BE -0.6 mmoll (-3.0-3.0); BLOOD TYPE ARTERIAL; HCO3-(ACT) 24.5 mmoll (20.0-26.0); METHB 1.2 % (0.0-1.5); O2(CT) 12.4 mL/dL (15.0-23.0); PCO2(98.6) 44 mmHg (35-45); PO2(98.6) 135 mmHg (60-100); SAMPLE BLOOD; SAO2 99.5 % (95.0-100.0); THB 8.9 g/dL (11.5-17.4); pH(98.6) 7.36 (7.35-7.45)
[2018-07-16 05:41] LABS: BASO# 0.02 X1000 (0.0-0.2); BASO% 0.1 % (0.0-0.8); EOS# 0.12 X1000 (0.0-0.7); EOS% 0.7 % (0.0-10.0); HEMATOCRIT 27.9 % (42.0-52.0); IMM GRAN# 0.07 X1000 (0.0-0.04); IMM GRAN% 0.4 % (0.0-0.5); LYMPH# 0.84 X1000 (1.2-3.4); LYMPH% 4.6 % (20.5-51.1); MCH 31.7 PG (27-31); MCHC 32.3 g/dL (33-37); MCV 98.2 FL (81-99); MONO# 0.94 X1000 (0.11-0.59); MONO% 5.1 % (1.7-9.3); MPV 11.4 FL (7.4-10.4); NEUT# 16.42 X1000 (1.4-6.5); NEUT% 89.1 % (42.2-75.2); PLT 332 X1000 (130-400); RBC 2.84 XMIL (4.7-6.1); RDW 12.1 % (11.5-14.5); WBC 18.41 X1000 (4.8-10.8)
[2018-07-16 05:41] LABS: MODALITY BI PAP
[2018-07-16 05:54] LABS: CALCIUM 8.4 mg/dL (8.8-10.2)
[2018-07-16] MEDS: HUMALOG SUBQ SCH ×2 (06:02→12:42)
[2018-07-16] MEDS: MAXIPIME 2 GM in NS 100 ML IV SCH (06:22)
[2018-07-16] MEDS: LOVENOX SUBQ SCH (06:22)
--- NOTE | 2018-07-16 07:24 | Diag Imaging Result Doc PS360 ---
EXAM: CHEST-1 VIEW 07/16/2018 HISTORY: SOB TECHNIQUE: AP portable at 0448 COMMENT: There is dense alveolar opacity throughout both lungs. This has improved slightly since the previous study of 07/14/2018 with better visualization of the left heart border and right hemidiaphragm. IMPRESSION: Slightly improved ARDS. Electronically signed by Fabio Hair 07/16/2018 7:22 AM
[2018-07-16 08:00] LABS: LYMPHS 4 % (21-51); MONO 4 % (1-9); SEGS 92 % (42-75)
[2018-07-16] MEDS: ZOFRAN IV PRN (08:00)
[2018-07-16] MEDS ORDERED: ATIVAN IV PRN (08:25)
[2018-07-16] MEDS: ZYVOX PO SCH (08:36)
[2018-07-16] MEDS: COREG PO SCH (08:36)
[2018-07-16] MEDS: MIRALAX PO SCH (08:37)
--- NOTE | 2018-07-16 08:43 | PROGRESS NOTE ---
DATE: 07/16/2018 SUBJECTIVE: As per nursing staff, the patient has been somewhat unresponsive and obtunded this morning. Apparently, he has removed the BiPAP mask. Upon my examination, he complains of still feeling short of breath and he is in moderate respiratory distress. OBJECTIVE: Vital Signs: Temperature 98.8 degrees, heart rate 90, respiratory rate 36, blood pressure 153/67, O2 saturation 97% on 100% BiPAP. General Examination: This is a 63-year-old, chronically ill-looking, male, lying in bed, in no acute distress. HEENT: Head is normocephalic and atraumatic. Mucous membranes are dry. Neck: No JVD noted. No carotid bruits. No lymphadenopathy. Cardiovascular Examination: S1 and S2 heard. Tachycardic. No murmurs, gallops, or rubs. Respiratory Examination: Coarse breath sounds present in both pulmonary bases, as well as mild wheezing. The patient is using some accessory muscles and mild work of breathing noted. Abdomen: Soft. A little bit distended but nontender to palpation. Bowel sounds present. No organomegaly. Extremities: No clubbing or cyanosis. Still 2+ pitting edema in both lower extremities below the knee, down. That is unchanged in comparing with previous days. Peripheral pulses present in both legs. Neurological Examination: The patient is sleepier but followed commands. Moved 4 extremities. Laboratory Data: White cell count 18.41, hemoglobin 9.0, hematocrit 27.9, platelets 330,000. ABG shows pH 7.36, pCO2 44, PO2 135. BMP remarkable for creatinine 2.0, sodium 133 , potassium 5.0. ASSESSMENT AND PLAN: 1. Acute respiratory failure secondary to bilateral pneumonia. Unfortunately, this patient is clinically not getting better, actually is getting worse. Patient is on Zyvox oral and cefepime 2 g intravenous every [address] Beyer's recommendation. I think, at this point, considering that his mental status is declining, I prefer to change Zyvox from oral to intravenous. He is very tachypneic. Now, he is on BiPAP at 100% FiO2. I prefer to send this patient to the intensive care unit for better monitoring because he is at high risk of intubation. 2. Possible congestive heart failure. Patient has been receiving Lasix 40 mg intravenous every 12 hours but we had to stop it yesterday because kidney function continues to get worse. At this point, we will continue to monitor the patient closely. Because of his acute respiratory decline, I prefer to send him to the unit. 3. Acute kidney injury. Unfortunately, even though we have stopped Lasix and lisinopril, renal function continues to get worse so we will consult nephrology to see what else we can do for this patient. 4. Hypertension. Blood pressure is in the range of 150s and 170s so it is still not well controlled. At this point, we will continue to monitor this patient closely but no changes will be made today. 5. Hyperlipidemia. We will continue with lovastatin. 6. Diabetes mellitus type 2. Patient is on Accu-Chek before meals and also at bedtime, and also sliding scale insulin as well. 7. Deep vein thrombosis prophylaxis. Patient is on Lovenox. 8. Disposition. At this point, considering his declining respiratory status, I prefer to send him to the intensive care unit for better monitoring. Critical care time on this patient was 40 minutes. cc: MD ANTONIO Hanson
[2018-07-16] MEDS: MYCOSTATIN SUSP PO SCH ×2 (10:59→12:42)
[2018-07-16 11:26] VITALS: BP 136/68
[2018-07-16] MEDS: ICAR-C PO SCH (12:43)
[2018-07-16] MEDS: MUCINEX PO SCH (12:43)
[2018-07-16] MEDS ORDERED: CALCIUM CHLORIDE ONE (13:52)
[2018-07-16] MEDS ORDERED: SODIUM BICARBONATE 8.4% ONE ×2 (13:52→14:12)
[2018-07-16] MEDS ORDERED: CORDARONE ONE (13:52)
[2018-07-16] MEDS ORDERED: EPINEPHRINE SYRINGE ONE (13:52)
[2018-07-16] MEDS ORDERED: EPINEPHRINE 4 MG in NS 250 ML IV SCH (15:00)
[2018-07-16] MEDS ORDERED: DOPAMINE 800 MG/D5W 800 MG/500 ML IV.SOLN IV SCH (15:00)
--- NOTE | 2018-07-17 05:23 | DISCHARGE SUMMARY ---
ADMISSION DATE: 07/12/2018 DISCHARGE DATE: 07/16/2018 DISCHARGE DIAGNOSES: The patient passed out from the following diagnoses 1. Acute respiratory failure, hypoxemic, hypercapnic. 2. Bilateral pneumonia. 3. Possible congestive heart failure. 4. Worsening acute renal failure. 5. Hypertension. 6. Hyperlipidemia. 7. Diabetes mellitus type 2. CONSULTATIONS: 1. Dank Modi MD from Pulmonary. 2. Jose Armando Beyer MD from Infectious Disease. PROCEDURES: 1. Chest x-ray done on admission showed worsening pulmonary edema versus pneumonia. 2. Echocardiogram Doppler showed ejection fraction of 55% to 60% with scant both predominantly posterior pericardial effusion with no evidence of tamponade by physiology. Normal RV size and systolic function. Severe left atrial enlargement. No mitral valve prolapse. 3. Chest CT showed pneumonia with bilateral pleural effusions and mediastinal adenopathy. HOSPITAL COURSE: This is a 63-year-old male, who was recently discharged from the hospital on July 07, and he was readmitted on July 12 for worsening right-sided pneumonia, uncontrolled hypertension, acute kidney injury, and diabetes mellitus. This patient was admitted to the hospital, put on broad-spectrum antibiotics in this case, Zyvox and cefepime. We were checking with this patient ever single day. Unfortunately, he did not really show signs of improvement. We noted that he has bilateral lower extremity edema and also some crackles that suggest volume overload and even though the patient has an unremarkable echo findings, we decided to provide Lasix. But unfortunately he started developing acute kidney injury. Every single day he was complaining that he had a bout of shortness of breath and this morning, I was called around 7:30, that this patient was really struggling breathing and when I went to see this patient, was complaining of badly short of breath worse than previous days. So, we put him back on BiPAP, and we were about to send him to the Intensive Care Unit. Unfortunately around 1:52, his respiratory dysfunction started getting even worse, so he developed a respiratory arrest, followed by cardiac arrest. We went to resuscitate this patient, and we provided CPR on ventilation for approximately 35 minutes and at that time, we decided to stop the code because the patient was not getting back. The patient, unfortunately, at 2:25 p.m. cc: Barrett Carpenter MD
== END 2018-07-16 14:27 | disposition expired | DRG 871 ==
LOC: ED 21:44 → SUATTDRO 07-12 00:35 → EDIPHOLD 07-12 00:35 → 3S 07-12 16:34
PROVIDERS: ATTEND Internal Medicine
CPT/HCPCS: 71010; 71045; 71250; 80048; 80053; 81001; 82550; 82805; 82948; 83036; 83605; 83735; 83880; 84145; 84484; 85025; 85027; 85610; 85730; 87040; 87070; 87088; 87205; 93005; 93306; 94640; 94660; 94667; 94762; 96365; 96366; 96367; 96372; 96375; 99285; A9270; C9113; J0171; J0282; J0692; J1650; J1815; J1940; J2020; J2060; J2405; S0164; XXXXX